=== PATIENT | female | born 1980 | race Caucasian/White ===

== ENCOUNTER 2018-05-15 07:23 | Day surgery (SDC) | payer BC ==
[~2018-05-15] VITALS: Ht 167.6 cm; Wt 149.7 kg
[~2018-05-15 07:23] MED LIST: BUTA1CAP57 PO; CYCL10TA2 PO; HYDROmorphone 2 MG/ML VIAL IV PRN; IV RINGERS,LACTATED 1000ML 1,000 ML IV SCH; LIDOCAINE 1% PF 2 ML VIAL. ID PRN; MORPHINE SULFATE 2 MG/ML VIAL. IV PRN; NAPR-514 PO; ONDANSETRON PF 4 MG/2 ML VIAL. IV PRN; SUMA50TA3 PO; ceFAZolin SODIUM 3 GM in IV DEXTROSE 5% 100ML 100 ML IV PRN; fentaNYL PF VIAL 100 MCG/2 ML VIAL IV PRN
[2018-05-15 08:32] LABS: U PREG PATIENT NEGATIVE (NEG)
[2018-05-15] MEDS ORDERED: BUPIVAC MPF-EPI 0.5%-1:200000 30 ML VIAL. ONE (09:32)
[2018-05-15] MEDS ORDERED: EPINEPHrine VIAL 30 MG/30 ML VIAL ONE (09:32)
[2018-05-15] MEDS ORDERED: fentaNYL PF VIAL 100 MCG/2 ML VIAL ONE ×3 (09:48→13:38)
[2018-05-15] MEDS ORDERED: PROPOFOL 20 ML IV ONE (09:49)
[2018-05-15] MEDS ORDERED: KETOROLAC 30 MG/ML INJ FOR OR. INJ ONE (09:49)
[2018-05-15] MEDS ORDERED: ONDANSETRON PF 4 MG/2 ML VIAL. ONE (09:49)
[2018-05-15] MEDS ORDERED: DEXAMETHASONE SOD PHOS 20 MG/5 ML VIAL. ONE (09:49)
[2018-05-15] MEDS ORDERED: SEVOFLURANE 61 TO 120 MINUTES. IH ONE (09:49)
[2018-05-15] MEDS ORDERED: MIDAZOLAM HCL/PF 2 MG/2 ML VIAL. ONE (09:51)
[2018-05-15] MEDS ORDERED: BUPIVACAINE 0.5% 50 ML VIAL. ONE (11:29)
[2018-05-15] MEDS ORDERED: PROCHLORPERAZINE 10 MG/2 ML VIAL. ONE (13:19)
[2018-05-15] MEDS: PROCHLORPERAZINE 10 MG/2 ML VIAL. IV PRN ×2 (13:22→13:38)
[2018-05-15] MEDS: fentaNYL PF VIAL 100 MCG/2 ML VIAL IV PRN ×2 (13:27→13:36)
[2018-05-15] MEDS ORDERED: MORPHINE SULFATE 2 MG/ML VIAL. ONE (13:38)
[2018-05-15] MEDS ORDERED: oxyCODONE/APAP 10/325 1 TAB TABLET ONE (15:33)
--- NOTE | 2018-05-15 15:37 | DISCH ---
DISCHARGE INSTRUCTIONS Condition on Discharge Condition on Discharge: Stable Activity After Discharge Activity Instructions for Disc: Other, see below (weightbearing as tolerated crutches or walker necessary for ambulation until you can walk without any type of limp) Weight Bearing Status after Di: As tolerated Diet after Discharge Diet after Discharge: Regular Wound Incision Care Wound/Incision Care: Change dressing (May remove dressing in 2 days may then shower no soaking until sutures out) Community/Resources/Services Services at Discharge: PT EVALUATE & TREAT (weightbearing as tolerated standard ACL protocol) Contacting the [facility] after DC Call your doctor for: Concerns you may have Follow-Up Follow up with: Balaji 7-10 days Treatment/Equipment after DC Adaptive Equipment Issued: Front wheeled walker LIYAH MENDOZA MD May 15, 2018 15:37
[2018-05-15] MEDS ORDERED: OXYC-328 PO (15:38)
[2018-05-15] MEDS ORDERED: oxyCODONE/APAP 10/325 1 TAB TABLET PO ONE (15:45)
[2018-05-15 15:50] VITALS: BP 120/68
--- NOTE | 2018-05-15 16:54 | PDOC4 ---
Operative Note Operative Note Date of surgery: 05/15/2018 Preoperative diagnosis: Left ACL tear Postoperative diagnosis: Same Operative procedure: Left knee arthroscopy allograft ACL reconstruction Surgeon: Balaji Anesthesia: Gen. Estimated blood loss: 20 mL Complications: None Operative indications: Sandee is a 38-year-old female who injured her left knee ACL and a twisting type injury since then has had instability swelling and knee pain. MRI had confirmed clinical diagnosis of a ACL tear. I had gone over with her the structure and function of the ACL nonoperative options of activity modification possible bracing and rehabilitation. Possibility of operative reconstruction along with the long recovery. The rationale for protection and restrictions during rehabilitation the possibility of infection nerve or blood vessel damage medical or other anesthetic complications postoperative stiffness recurrent instability among others all her questions were answered she wishes to proceed with surgical evaluation and treatment. Operative text: Patient was identified procedure verified patient placed in the supine position on operating table. After adequate amounts of general anesthesia were administered she was placed with a thigh tourniquet and lateral side post and the left lower extremity prepped and draped in standard sterile fashion. After timeout was performed patient procedure identified and verified the left lower extremity was exsanguinated by Esmarch bandage tourniquet inflated to 350 mmHg a lateral portal was established medial portal established under spinal needle localization and the knee joint was systematically examined. Patellofemoral articulation was noted to be in good condition with no instability no loose bodies in the gutters or suprapatellar pouch medial and lateral menisci were probed and found to be intact. She had some slight scuffing at the very edge of the body of the lateral meniscus but no radial tear was observed and it was left intact. ACL was noted to be compromised at his femoral origin grossly unstable and was removed with the arthroscopic shaver and bipolar electrocautery. Allograft was then prepared and sized at a size 9 double [place] and was placed under the tension on the graft board with a wet Ray-Yoshi sponge for protection. Femoral tunnel was drilled to approximately 35 mm depth using the [employer] flexible drill system. A 1/2 mm back wall was obtained and it was placed overall at the 1:30 position on the clock face in the tunnel. Tibial tunnel was then drilled in anatomic position any bony fragments were cleared out and edges were chamfered. The Biomet zip loop was mounted on the graft and the tibialis allograft was pulled up into the femoral tunnel and the closed zip loop button was flipped without difficulty. The graft was then placed under 20 pounds of tension and taken through 10 flexion and extension cycles to eliminate any creep and tibial fixation carried out with a 10 mm XO shape tibial implant. Backup fixation carried out today Quattro link knotless anchor in the anterior tibia excellent stability over full range of motion was noted. Thorough irrigation carried out anteromedial incision which was closed with buried Vicryl suture subcuticular Monocryl arthroscopic portals were closed with nylon suture and half percent Marcaine with epinephrine was infused throughout the fat pad and anterior incision. Sterile dressings were applied toes were noted be warm pink following deflation of tourniquet patient was returned recovery room in stable condition having tolerated procedure well LIYAH MENDOZA MD May 15, 2018 16:54
== END 2018-05-15 16:40 | disposition home or self-care (01) ==
LOC: SURG 07:23
PROVIDERS: ATTEND Orthopaedic Surgery
DX: S83.512A Sprain of anterior cruciate ligament of left knee, initial encounter (principal); J45.909 Unspecified asthma, uncomplicated; G43.909 Migraine, unspecified, not intractable, without status migrainosus; E66.01 Morbid (severe) obesity due to excess calories; Z68.43 Body mass index [BMI] 50.0-59.9, adult; Z90.49 Acquired absence of other specified parts of digestive tract; Z98.890 Other specified postprocedural states; Z82.49 Family history of ischemic heart disease and other diseases of the circulatory system; Z82.3 Family history of stroke; Z83.3 Family history of diabetes mellitus; Z82.5 Family history of asthma and other chronic lower respiratory diseases; Z81.8 Family history of other mental and behavioral disorders; Z88.1 Allergy status to other antibiotic agents; Z88.6 Allergy status to analgesic agent; Z88.8 Allergy status to other drugs, medicaments and biological substances; X50.1XXA Overexertion from prolonged static or awkward postures, initial encounter; Y93.67 Activity, basketball; Y92.89 Other specified places as the place of occurrence of the external cause; Y99.8 Other external cause status
CPT/HCPCS: 29888; 81025; 97116; A7015; C1713; C1762; J0171; J0780; J1100; J1885; J2250; J2270; J2405; J2704; J3010; J3490